=== PATIENT | male | born 1965 ===

== ENCOUNTER 2017-06-04 15:20 | Emergency (ER) | payer SELFPAY ==
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
--- NOTE | 2017-06-04 17:07 | RAD ---
INDICATION: Left rib pain COMPARISON: None TECHNIQUE: Multiple views of the ribs were obtained. FINDINGS: Bones: There is no evidence of acute rib fracture. LUNGS: The lungs are clear. There is no pneumothorax. Pleural spaces: There is no evidence of hemothorax. Other: None IMPRESSION: NO ACUTE RIB FRACTURE.
== END 2017-06-04 17:12 | disposition home or self-care (01) ==
LOC: UCEAST 15:20
DX: S20.312A Abrasion of left front wall of thorax, initial encounter (principal); T24.111A Burn of first degree of right thigh, initial encounter; X08.8XXA Exposure to other specified smoke, fire and flames, initial encounter; Y93.9 Activity, unspecified; Y92.9 Unspecified place or not applicable
CPT/HCPCS: 99202; G0463